=== PATIENT | female | born 1980 ===

== ENCOUNTER 2019-01-12 05:56 | Day surgery (SDC) | payer MEDICAID ==
[2019-01-12 06:25] VITALS: BMI 26.0
[2019-01-12] MEDS ORDERED: Bupivacaine 0.25% 20 ML INJ IJ ONE (07:25)
[2019-01-12] MEDS ORDERED: ceFOXitin IV 1 gm/100 ml in NS 2 GM/200 ML BAG ONE (07:25)
[2019-01-12] MEDS ORDERED: Midazolam 2 MG/2 ML VIAL ONE (07:28)
[2019-01-12] MEDS ORDERED: Propofol 10 mg/ml Inj (20 ML) ONE (07:29)
[2019-01-12] MEDS ORDERED: Neostigmine 1:1000 (1 mg/ml) Inj ONE (08:22)
[2019-01-12] MEDS ORDERED: HYDROmorphone 0.5 mg/0.5 ml ISec IVP PRN (08:42)
[2019-01-12 11:39] VITALS: BP 102/69; PULSE 74; RESP 16; TEMP 97.9; O2SAT 98
--- NOTE | 2019-01-12 20:06 | OP ---
PROCEDURE DATE: 01/12/2019 PREOPERATIVE DIAGNOSIS: A 38-year-old with 2, para 2, with multiparity permanent solution. POSTOPERATIVE DIAGNOSIS: A 38-year-old with 2, para 2, with multiparity permanent solution. SURGEON: Farhad Leary MD CHANCELLOR: Pillo Becker MD ANESTHESIOLOGIST: . ANESTHESIA: General anesthesia. PROCEDURE PERFORMED: Laparoscopic bilateral tubal ligation. COMPLICATIONS: None. ESTIMATED BLOOD LOSS: 20 mL. DESCRIPTION OF PROCEDURE: After informed consent, the patient was brought to the operating room, placed on the table where general anesthesia was given. Once anesthesia was found to be sufficient, the patient was prepped and draped in the normal sterile fashion. Examination under anesthesia revealed the uterus to be 6-week size. After that anterior lip of the cervix was grasped with a tenaculum. Gentle dilatation of the cervix was done. HUMI catheter was inserted and Becerra catheter was inserted in a sterile condition. Attention was turned to the patient's abdomen; 5 mL of Marcaine was given at the lower side of the umbilicus. After that, a small incision was made and Optiview was placed and we went into the abdominal cavity. Abdominal placement was confirmed with the gas. When looked with the camera, uterus, tubes, and ovaries looked normal. The patient had consented for tubal ligation, after that a 5 mm port was placed on the left side. After that, LigaSure was used to do the bilateral tubal ligation. Both the fimbria were visualized while two sides. Pictures were taken. It was not bleeding and the site of the umbilicus was looked up. It was hemostatic; and after that, pictures was taken. The tubal ligation site was looked again, it was hemostatic. After that all the ports were removed. The patient tolerated the procedure well. Lap, sponge, and instrument count were correct x2. Farhad Leary MD
== END 2019-01-12 11:34 | disposition home or self-care (01) ==
LOC: C.SDS 05:56
PROVIDERS: ATTEND Obstetrics & Gynecology
DX: Z30.2 Encounter for sterilization (principal)
CPT/HCPCS: 58670; J1885; J2250; J2405; J2704; J2710; J3010